=== PATIENT | female | born 1975 | race Two or more races ===

== ENCOUNTER 2020-10-30 23:44 | Inpatient (IN) | payer OTHER ==
[~2020-10-30] VITALS: Ht 160 cm; Wt 53.5 kg
== END 2020-11-03 11:41 | disposition home or self-care (01) | DRG 743 ==
LOC: ER 23:44 → SEC-K 10-31 08:06 → O/R 10-31 15:02 → OB/GYN 10-31 17:11 → SURG-SUITE 10-31 18:03
PROVIDERS: ADMIT Obstetrics & Gynecology; ATTEND Obstetrics & Gynecology
PROC: 0UT70ZZ Resection of Bilateral Fallopian Tubes, Open Approach (ICD-10-PCS; 2020-10-31)
PROC: 30233N1 Transfusion of Nonautologous Red Blood Cells into Peripheral Vein, Percutaneous Approach (ICD-10-PCS; 2020-10-31)
PROC: 0UT90ZZ Resection of Uterus, Open Approach (ICD-10-PCS; principal; 2020-10-31 13:00)
DX: N93.8 Other specified abnormal uterine and vaginal bleeding (principal); D64.89 Other specified anemias; D25.0 Submucous leiomyoma of uterus; D25.1 Intramural leiomyoma of uterus; Z20.822 Contact with and (suspected) exposure to COVID-19